=== PATIENT | male | born 1950 | race Hispanic/Latino ===

== ENCOUNTER 2019-08-29 | Day surgery (SDC) | payer MEDICARE ==
[~2019-08-29] MED LIST: BACTRIM DS1 TAB PO; LISINOPRIL10 MG PO; PRAVASTATIN SOD20 MG PO; ULTRAM50 M1 PO
== END 2019-08-29 09:30 | disposition home or self-care (01) ==
PROC: 0DJD8ZZ Inspection of Lower Intestinal Tract, Via Natural or Artificial Opening Endoscopic (ICD-10-PCS; principal; 2019-08-29)
DX: Z12.11 Encounter for screening for malignant neoplasm of colon (principal); K57.30 Diverticulosis of large intestine without perforation or abscess without bleeding; K64.8 Other hemorrhoids; I10 Essential (primary) hypertension

== ENCOUNTER 2024-01-20 14:10 | Emergency (ER) | payer MEDICARE, MEDICAID ==
[~2024-01-20] VITALS: Ht 172.7 cm; Wt 86.0 kg
[2024-01-20 14:18] VITALS: BP 121/83
[2024-01-20 14:30] VITALS: BP 119/80
[2024-01-20 14:45] VITALS: BP 128/92
[2024-01-20 15:00] VITALS: BP 119/80
[2024-01-20] MEDS ORDERED: VIBRAMYCIN100 M2 PO (15:07)
[2024-01-20 15:15] VITALS: BP 126/90
[2024-01-20 15:18] VITALS: BP 126/90
== END 2024-01-20 15:30 | disposition home or self-care (01) ==
LOC: ED 14:10
DX: S50.811A Abrasion of right forearm, initial encounter (principal); I10 Essential (primary) hypertension; W55.03XA Scratched by cat, initial encounter; Y93.H2 Activity, gardening and landscaping